=== PATIENT | male | born 1980 | race Caucasian/White ===

== ENCOUNTER 2017-09-22 22:33 | Emergency (ER) | payer OTHER ==
[~2017-09-22] VITALS: Ht 198.1 cm; Wt 102.5 kg
[2017-09-22] MEDS ORDERED: CLINDAMYCIN HC300 MG PO (23:46)
[2017-09-22] MEDS ORDERED: NORCO 5-325 TA1 EACH PO (23:46)
== END 2017-09-23 00:07 | disposition home or self-care (01) ==
LOC: ED 22:33
DX: K08.89 Other specified disorders of teeth and supporting structures (principal)
CPT/HCPCS: 99282